=== PATIENT | female | born 1990 | race Caucasian/White ===

== ENCOUNTER 2019-09-24 05:25 | Inpatient (IN) | payer OTHER ==
--- NOTE | 2019-09-23 22:17 | PDOC.LDHP ---
Labor and Delivery H&P Chief complaint: scheduled section HPI: 29 y/o at 39 and 2/7 weeks with Morbid Obesity, CHTN, and suspected CPD with highly unfavorable cervix, presents for primary . Patient has declined a trial of labor and medical induction. Current gestational age (weeks): 39 Due date: 09/29/19 Grav: 1 Para: 0 Current complications: hypertension, other Abnormal US findings: Yes Current medications: pre-isidoro vitamins Previous surgical history: none Social history: none - Physical Exam Vital signs reviewed and normal: yes General: NAD Heart: RRR Lungs: CTAB Abdomen: gravid Extremeties: no edema FHT: category 1 - Vaginal Exam cm dilated: 0 Effacement: 0% Station: -3 - Assessment L&D Assessment: scheduled primary section - Plan Plan: admit to L&D, to OR for section
[~2019-09-24 05:25] MED LIST: Bicitra 30 ML UDCUP PO SCH; CEFAZOLIN 2 GM in Premix Bag 1 BAG IVPB SCH; Ondansetron PF 4 MG/2 ML Vial IVP PRN; Promethazine HCl 25 MG/ML VIAL IM PRN; hydrALAZINE 20 MG/ML VIAL SLOW IVP PRN
[2019-09-24 06:03] VITALS: BMI 47.0
[2019-09-24] MEDS: Lactated Ringer's 1,000 ML IV SCH ×3 (06:15→19:54)
[2019-09-24 06:46] LABS: Hemoglobin 11.8 g/dL (12.0-16.0); Mean Corpuscular HGB CONC 33.2 g/dL (32.0-36.0); Mean Corpuscular Volume 87.3 fL (78.0-98.0); Mean Platelet Volume 8.1 fL (7.4-10.4); Platelet Count 349 thou/uL (130-400); RBC Distribution Width 14.7 % (11.5-14.5); Red Blood Cell (RBC) Count 4.06 mill/uL (4.20-5.40); White Blood Cell (WBC) Count 11.8 thou/uL (4.8-10.8)
[2019-09-24] MEDS ORDERED: MORPHINE 5 MG/10 ML PF VIAL ONE (07:20)
[2019-09-24] MEDS ORDERED: Oxytocin 10 UNITS/ML VIAL ONE (07:20)
[2019-09-24] MEDS ORDERED: Ondansetron PF 4 MG/2 ML Vial ONE (07:20)
[2019-09-24 07:24] LABS: HBSAg Index 0.21 S/CO (0-0.99); Hep B Surf Ag Non-Reactive S/CO (NonReactive)
[2019-09-24] MEDS ORDERED: Lidocaine 2% 10 ML INJ ONE (07:48)
[2019-09-24] MEDS ORDERED: ePHEDrine/0.9% NaCl/PF SYRINGE 50 mg/10 ml ONE (07:55)
[2019-09-24 10:22] LABS: HIV (1/2) Antibody/Antigen Non-Reactive (NonReactive); HIV 1/2 INDEX 0.08 S/CO (<1.00)
[2019-09-24] MEDS ORDERED: Misoprostol 200 MCG TAB PR PRN (11:24)
[2019-09-24] MEDS ORDERED: Bisacodyl 10 MG SUPP PR PRN (11:24)
[2019-09-24] MEDS ORDERED: Promethazine HCl 25 MG/ML VIAL IM PRN ×2 (11:24→12:25)
[2019-09-24] MEDS ORDERED: Lanolin Ointment 7 GM TUBE TOP PRN (11:24)
[2019-09-24] MEDS ORDERED: diphenhydrAMINE 25 MG CAP PO PRN (11:24)
[2019-09-24] MEDS ORDERED: HYDROcodone/Acetaminophen 5/325 mg Tablet PO PRN ×2 (11:24)
[2019-09-24] MEDS ORDERED: Ondansetron PF 4 MG/2 ML Vial IVP PRN ×2 (11:24→12:25)
[2019-09-24] MEDS ORDERED: hydrALAZINE 20 MG/ML VIAL SLOW IVP PRN (11:24)
[2019-09-24] MEDS ORDERED: NS / Oxytocin 40 units/1000ml 1,000 ML IV SCH (11:24)
[2019-09-24] MEDS ORDERED: Naloxone HCl 0.4 mg/ml Vial IVP PRN ×2 (12:25)
[2019-09-24] MEDS ORDERED: HYDROmorphone 2 MG/ML VIAL SLOW IVP PRN (12:25)
[2019-09-24] MEDS ORDERED: L&D-Morphine 4 MG/ML VIAL SLOW IVP PRN (12:25)
[2019-09-24] MEDS ORDERED: diphenhydrAMINE 50 MG/ML VIAL IVP PRN (12:25)
[2019-09-24] MEDS ORDERED: Naloxone HCl 0.4 mg/ml Vial IV PRN (12:25)
[2019-09-24] MEDS ORDERED: Meperidine HCl/PF 25 MG/ML VIAL SLOW IVP PRN (12:25)
[2019-09-24] MEDS ORDERED: Promethazine HCl 25 MG SUPP PR PRN (12:25)
[2019-09-24] MEDS ORDERED: Ondansetron HCl/PF 4 MG/2 ML Vial IVP PRN (12:25)
[2019-09-24] MEDS ORDERED: Ketorolac Tromethamine 30 MG/ML VIAL IVP PRN (12:25)
[2019-09-24] MEDS ORDERED: Ketorolac Tromethamine 30 MG/ML VIAL IVP SCH (12:30)
[2019-09-24] MEDS ORDERED: Communication Order-Pharmacy FS SCH (12:30)
[2019-09-24] MEDS ORDERED: Ibuprofen 800 MG TAB PO SCH (14:00)
[2019-09-24 14:49] LABS: Syphilis Antibody Nonreactive (Nonreactive); Syphilis Antibody Index 0.04 S/CO (<1.00 Non-Reactive)
[2019-09-25] MEDS: Docusate Calcium (SURFAK) 240 MG CAP PO SCH ×3 (00:04→20:52)
[2019-09-25] MEDS ORDERED: HYDROcodone/Acetaminophen 5/325 mg Tablet PO PRN ×2 (00:30)
[2019-09-25 04:57] LABS: Hemoglobin 10.3 g/dL (12.0-16.0); Mean Corpuscular HGB CONC 33.4 g/dL (32.0-36.0); Mean Corpuscular Hemoglobin 29.3 pg (27.0-31.0); Mean Corpuscular Volume 87.8 fL (78.0-98.0); Mean Platelet Volume 7.4 fL (7.4-10.4); Platelet Count 273 thou/uL (130-400); RBC Distribution Width 14.6 % (11.5-14.5); White Blood Cell (WBC) Count 12.9 thou/uL (4.8-10.8)
[2019-09-25] MEDS ORDERED: Adacel (T-DAP) 0.5 ML SYRINGE IM ONE (09:00)
[2019-09-25] MEDS ORDERED: Varicella virus, LIVE 0.5 ML VIAL SC ONE (09:00)
[2019-09-25] MEDS ORDERED: Measles/Mumps/Rubella 10 MCG/0.5 ML VIAL SC ONE (09:00)
[2019-09-25] MEDS: Prenatal Vitamin 1 TAB PO SCH (09:16)
--- NOTE | 2019-09-25 12:09 | PDOC.PP ---
Post Progress Note Post Day #: 1 PO intake tolerated: yes Flatus: yes Ambulation: yes Vital Signs (12 hours) Temp Pulse Resp BP Pulse Ox 09/25/19 12:05 98.3 F 93 20 131/62 09/25/19 08:40 98.5 F 103 H 20 129/69 93 L 09/25/19 04:05 98.2 F 96 18 115/61 09/25/19 00:45 98.2 F 107 H 18 121/76 97 Weight Weight 241 lb - Physical Examination General: NAD Cardiovascular: no m/r/g, RRR Respiratory: clear to auscultation bilaterally, non-labored breathing Abdominal: + bowel sounds, lochia, no distention Extremities: negative homans (B) Skin: CS incision dry & intact, no rash Neurological: no gross focal deficits Psychiatric: A&Ox3, normal affect Result Diagrams: 09/25/19 04:30 Additional Labs: Post Labs Blood Type A POSITIVE 09/24/19 07:32 Hep Bs Antigen Non-Reactive S/CO (NonReactive) 09/24/19 05:50
[2019-09-25] MEDS: Ibuprofen 800 MG TAB PO SCH ×2 (13:44→20:52)
--- NOTE | 2019-09-25 16:23 | OP ---
DATE OF PROCEDURE: 09/24/2019 TIME OF SERVICE: 8:16 dixon standard time. PREOPERATIVE DIAGNOSES: Intrauterine at 39 weeks and 2 days with history of chronic hypertension, morbid obesity, suspected cephalopelvic disproportion with a declined trial of labor. POSTOPERATIVE DIAGNOSES: Intrauterine at 39 weeks and 2 days with history of chronic hypertension, morbid obesity, suspected cephalopelvic disproportion with a declined trial of labor. PROCEDURE PERFORMED: Primary low-transverse section. FINDINGS: Viable female infant, weighing 3344 g, 7 pounds 6 ounces, Apgars 9 and 9. ESTIMATED BLOOD LOSS: 350 mL. COMPLICATIONS: None. DETAILS OF THE PROCEDURE: The patient was consented and taken back to the operating room where spinal anesthesia was found to be adequate. She was then prepped and draped in the normal sterile fashion. A timeout was performed by the entire operative team. The incision was then marked with a marking pen tested using sharp pickups. An incision was then made with a scalpel. The incision was carried through the adipose tissue down to the underlying rectus fascia using both sharp dissection as well as cautery. Once the fascia was identified, it was incised in the midline and then the fascial incision was carried through in both lateral directions using sharp as well as cautery dissection techniques. Next, the superior aspect of the rectus fascia was grasped with 2 Kortney clamps, which was tented up and the rectus muscles were dissected off using blunt dissection as well as cautery dissection. Similarly, the inferior aspect of the fascial incision was grasped with 2 Kortney clamps, tented up and the rectus muscles were dissected off bluntly as well as sharply. Next, the rectus muscles were in the midline and the peritoneum identified. The peritoneum was then carefully grasped with 2 hemostats and entered sharply. The peritoneal incision was extended superiorly and inferiorly and bladder blade was placed in the lower abdomen. At this point, the uterus was identified and the bladder flap was then developed using pickups with teeth as well as Metzenbaum scissors in both lateral directions. The bladder flap was then dissected downwards using the vacuum cleaner operator's finger as well as Metzenbaum scissors. The bladder blade was replaced. The lower uterine segment was then identified and entered sharply using a clean scalpel. The uterine incision was then dissected downwards until thin layer of muscle remained and this was entered bluntly using a hemostat to avoid any injury to the baby. The uterine incision was then stretched using two fingers in both lateral directions. An amniotomy was performed artificially using a hemostat and the baby was delivered using fundal pressure in a gentle fashion. Once out, the baby's mouth and nose were bulb suctioned, cord clamped and cut, and the baby was handed to waiting attendants. Next, the uterus was exteriorized, cleared of all clots and debris and the uterine incision was repaired with #1 Monocryl in a running locking fashion. A 2nd suture of the same type was used to obtain complete hemostasis at the uterine incision. The bladder flap was reapproximated using 3-0 Monocryl. Next, patient's left and right adnexa were inspected and appeared to be within normal limits. The posterior cul-de-sac was blotted dry and hemostasis assured. One more look at the uterine incision demonstrated hemostasis. Next, the uterus was replaced back within the abdomen. The peritoneum was reapproximated using 2-0 Monocryl without difficulty. The rectus muscles were then allowed to come back together and 0 chromic was used to aid in reapproximation of the muscle as necessary. The rectus fascia was then reapproximated in a running fashion using 0 Vicryl suture. The adipose tissue was then examined and appeared to be well approximated without any obvious separations. Finally, the skin was reapproximated with 3-0 Monocryl on a Tommy needle without difficulty and Dermabond adhesive was applied to the skin. Once the glue was dry, the drapes were removed and the patient was transferred to an ambulatory bed where she was taken to recovery awake and in stable condition. Sponge, lap, and needle counts were correct x3. Job ID: [id number]
[2019-09-26] MEDS: Ibuprofen 800 MG TAB PO SCH ×3 (05:11→21:02)
--- NOTE | 2019-09-26 06:17 | PDOC.PP ---
Post Progress Note Post Day #: POD2 Subjective: No c/o. Tolerating diet. Pt. concerned about having enough pain meds at home. PO intake tolerated: yes Flatus: yes Ambulation: yes Vital Signs (12 hours) Temp Pulse Resp BP Pulse Ox 09/26/19 01:00 98.5 F 80 18 124/66 09/25/19 20:45 98.1 F 96 18 121/64 98 Weight Weight 109.316 kg - Physical Examination General: NAD Respiratory: non-labored breathing Abdominal: no distention, appropriately TTP Skin: CS incision dry & intact Psychiatric: normal affect Result Diagrams: 09/25/19 04:30 Additional Labs: Post Labs Blood Type A POSITIVE 09/24/19 07:32 Hep Bs Antigen Non-Reactive S/CO (NonReactive) 09/24/19 05:50 - Assessment/Plan Doing well s/p 1* C/S. Ambulate. DC home either this PM or in AM.
[2019-09-26] MEDS: Prenatal Vitamin 1 TAB PO SCH (09:27)
[2019-09-26] MEDS: Docusate Calcium (SURFAK) 240 MG CAP PO SCH ×2 (09:27→21:02)
[2019-09-26] MEDS: Simethicone Chewable 80 MG TAB PO PRN (21:02)
[2019-09-27] MEDS: Ibuprofen 800 MG TAB PO SCH (05:11)
[2019-09-27] MEDS: Simethicone Chewable 80 MG TAB PO PRN (09:58)
[2019-09-27] MEDS: Docusate Calcium (SURFAK) 240 MG CAP PO SCH (09:58)
[2019-09-27] MEDS: Prenatal Vitamin 1 TAB PO SCH ×2 (09:58→10:00)
[2019-09-27 11:09] VITALS: BP 141/79; TEMP 98.3
== END 2019-09-27 13:24 | disposition home or self-care (01) | DRG 787 ==
LOC: L&D 05:25 → 3SW 11:41
PROVIDERS: ADMIT Obstetrics & Gynecology; ATTEND Obstetrics & Gynecology
PROC: 10D00Z1 Extraction of Products of Conception, Low, Open Approach (ICD-10-PCS; principal; 2019-09-24)
DX: O33.0 Maternal care for disproportion due to deformity of maternal pelvic bones (principal); O10.92 Unspecified pre-existing hypertension complicating childbirth; Z3A.39 39 weeks gestation of pregnancy; Z37.0 Single live birth; O99.214 Obesity complicating childbirth; E66.01 Morbid (severe) obesity due to excess calories
CPT/HCPCS: 36415; 85027; 86780; 86850; 86900; 86901; 87340; 87389; J0690; J1885; J2001; J2274; J2405; J2590